=== PATIENT | female | born 1975 | race American Indian/Alaskan Native ===

== ENCOUNTER 2019-01-24 12:02 | Emergency (ER) | payer SELFPAY ==
--- NOTE | 2019-01-24 12:14 | Event Note ---
Date: 01/24/19 c/o suprapubic discomfort, white vaginal discharge, low back pain for about one week, symptoms worse after menstruation. no fever, flank pain, chills or night sweats. use otc yeast meds without relief. pmhx: no sig pshx: btl, breast reduction sochx: no tobacco,
[2019-01-24 13:50] LABS: Bilirubin,Urine NEG (Negative); Blood,Urine SM (Negative); Color,Urine Straw (Yellow); Mucus,Urine FEW /HPF; Protein,Urine <15 mg/dL mg/dL (Negative); Urobilinogen,Urine < 2.0 mg/dL (<2.0)
--- NOTE | 2019-01-24 14:10 | Emergency Department Report ---
ED Female HPI - General Chief complaint: Vaginal Bleeding Stated complaint: LOWER BACK PAIN/STOMACH PAIN Time Seen by Provider: 01/24/19 12:49 Source: patient Mode of arrival: Ambulatory Limitations: No Limitations - History of Present Illness Initial comments: This is a 43-year-old [place] female who presents to the emergency room with abdominal pain and back pain for 3 days. Reports pain as cramping intensity that is intermittent. She also reports vaginal discharge with foul odor. Patient states she had a new male partner which she used a condom. She used Monistat for 3 days with no improvement of symptoms. Denies urinary frequency, urgency, dysuria, or fever. MD Complaint: vaginal discharge, possible STD Onset/Timin -: days(s) Location: suprapubic Radiation: non-radiating Severity: mild Severity scale (0 -10): 5 Quality: cramping Consistency: intermittent Worsens with: none Are you Now?: No Last Menstrual Period: 01/19/19 EDC: 10/26/19 Associated Symptoms: vaginal discharge. denies: vaginal bleeding, nausea/vomiting, fever/chills, headaches, loss of appetite, dysuria, hematuria, rash, seizure, shortness of breath, syncope - Related Data Sexually active: Yes Previous Rx's Medication Instructions Recorded Last Taken Type metroNIDAZOLE [Flagyl TAB] 500 mg PO Q12HR #14 tab 01/24/19 Unknown Rx Allergies Allergy/AdvReac Type Severity Reaction Status Date / Time No Known Allergies Allergy Unverified 01/24/19 12:08 ED Review of Systems ROS: Stated complaint: LOWER BACK PAIN/STOMACH PAIN Other details as noted in HPI Constitutional: denies: chills, fever Respiratory: denies: cough, shortness of breath, wheezing Cardiovascular: denies: chest pain, palpitations Gastrointestinal: abdominal pain. denies: nausea, diarrhea Genitourinary: discharge. denies: urgency, dysuria Musculoskeletal: denies: back pain, joint swelling, arthralgia Skin: denies: rash, lesions Neurological: denies: headache, weakness, paresthesias Psychiatric: denies: anxiety, depression ED Past Medical Hx - Past Medical History Previous Medical History?: No - Surgical History Past Surgical History?: Yes Additional Surgical History: tubal ligation. breast reduction - Social History Smoking Status: Never Smoker Substance Use Type: None - Medications Home Medications: Home Medications Medication Instructions Recorded Confirmed Last Taken Type metroNIDAZOLE [Flagyl TAB] 500 mg PO Q12HR #14 tab 01/24/19 Unknown Rx ED Physical Exam - General Limitations: No Limitations General appearance: alert, in no apparent distress, obese - Respiratory Respiratory exam: Present: normal lung sounds bilaterally. Absent: respiratory distress - Cardiovascular Cardiovascular Exam: Present: regular rate, normal rhythm. Absent: systolic murmur, diastolic murmur, rubs, gallop - GI/Abdominal GI/Abdominal exam: Present: soft, normal bowel sounds. Absent: distended, tenderness, guarding, rebound, rigid, organomegaly - External exam: Present: normal external exam Speculum exam: Present: vaginal discharge (malodorous frothy white discharge). Absent: cervical discharge, vaginal bleeding, foreign body, tissue, laceration Bi-manual exam: Present: normal bi-manual exam - Back Exam Back exam: Absent: CVA tenderness (R), CVA tenderness (L) - Neurological Exam Neurological exam: Present: alert, oriented X3 - Psychiatric Psychiatric exam: Present: normal affect, normal mood - Skin Skin exam: Present: warm, dry, intact, normal color. Absent: rash ED Course Vital Signs 01/24/19 12:11 Temperature 97.9 F Pulse Rate 74 Respiratory 18 Rate Blood Pressure 151/89 O2 Sat by Pulse 100 Oximetry ED Medical Decision Making - Lab Data Lab Results 01/24/19 01/24/19 Range/Units 12:27 13:15 HCG, Quant < 2 (0-4) mIU/mL Urine Color Straw (Yellow) Urine Turbidity Slightly-cloudy (Clear) Urine pH 6.0 (5.0-7.0) Ur Specific [place] 1.009 (1.003-1.030) Urine Protein <15 mg/dl (Negative) mg/dL Urine Glucose (UA) Neg (Negative) mg/dL Urine Ketones Neg (Negative) mg/dL Urine Blood Sm (Negative) Urine Nitrite Neg (Negative) Urine Bilirubin Neg (Negative) Urine Urobilinogen < 2.0 (<2.0) mg/dL Ur Leukocyte Esterase Lg (Negative) Urine WBC (Auto) 8.0 H (0.0-6.0) /HPF Urine RBC (Auto) 5.0 (0.0-6.0) /HPF U Epithel Cells (Auto) 9.0 (0-13.0) /HPF Urine Mucus Few /HPF - Medical Decision Making Patient was examined by me. Vitals are stable and in no acute distress. Obtained urinalysis, hcg qual, wet prep and gonorrhea and chlamydia via pelvic exam. Wet prep positive for clue cells, Trichomonas, polymorphonuclear cells. Pending urinalysis and tests is unremarkable. Empirically treated with Rocephin 250 mg IM. Start metronidazole 500 mg po bid x 7. Discharged home in stable condition. Discussed prevention options. F/U with PCP or Health Department. Critical care attestation.: If time is entered above; I have spent that time in minutes in the direct care of this critically ill patient, excluding procedure time. ED Disposition Clinical Impression: Vaginal discharge, Pelvic pain, Exposure to STD, Trichomonal vaginitis, Bacterial vaginitis Disposition: TO HOME OR SELFCARE Is pt being admited?: No Does the pt Need Aspirin: No Condition: Stable Instructions: Bacterial Vaginosis (ED), Safe Sex (ED), Sexually Transmitted Diseases (ED), Trichomoniasis (ED) Additional Instructions: Avoid drinking alcohol while taking antibiotics and for 24 hours after comple tion. Continue safe sexual intercourse. Follow up with Primary Care Provider or health department. Prescriptions: metroNIDAZOLE [Flagyl TAB] 500 mg PO Q12HR #14 tab Referrals: [facility] [Outside] - 3-5 Days [facility] [Outside] - 3-5 Days [facility] [Outside] - 3-5 Days Forms: STI Treatment and Prevention Time of Disposition: 14:24
[2019-01-24 15:06] VITALS: BP 151/85
[2019-01-24] MEDS ORDERED: XYLOCAINE 1% MPF 5 mL INFILTRATI ONE (15:15)
[2019-01-24] MEDS ORDERED: ZITHROMAX PO ONE (15:15)
[2019-01-24] MEDS ORDERED: ROCEPHIN IM ONE (15:15)
== END 2019-01-24 15:45 | disposition home or self-care (01) ==
LOC: ED 12:02
DX: A59.01 Trichomonal vulvovaginitis (principal); N76.0 Acute vaginitis
CPT/HCPCS: 36415; 81001; 84702; 87210; 87591; 96372; 99284; J0696